=== PATIENT | male | born 1945 | race Caucasian/White ===

== ENCOUNTER 2020-11-18 04:00 | Emergency (ER) | payer OTHER ==
[2020-11-18] MEDS ORDERED: Bacitracin 1 PK ONE (05:18)
== END 2020-11-18 05:15 | disposition home or self-care (01) ==
LOC: BURERS 04:00
DX: S00.01XA Abrasion of scalp, initial encounter (principal); K21.9 Gastro-esophageal reflux disease without esophagitis; E78.5 Hyperlipidemia, unspecified; I10 Essential (primary) hypertension; Z79.899 Other long term (current) drug therapy; W19.XXXA Unspecified fall, initial encounter
CPT/HCPCS: 70450

== ENCOUNTER 2021-04-16 10:35 | Outpatient (CLI) | payer MEDICARE, OTHER | END 2021-04-16 10:36 | disposition home or self-care (01) | LOC: BURRAD 10:35 | PROVIDERS: ATTEND Family Medicine | DX: S89.91XA Unspecified injury of right lower leg, initial encounter (principal); R14.0 Abdominal distension (gaseous); M25.461 Effusion, right knee; M79.89 Other specified soft tissue disorders ==

== ENCOUNTER 2021-05-19 09:08 | Outpatient (CLI) | payer MEDICARE | END 2021-05-19 09:09 | disposition home or self-care (01) | LOC: BURRAD 09:08 | PROVIDERS: ATTEND Registered Nurse Community Health | DX: M25.551 Pain in right hip (principal); Z96.641 Presence of right artificial hip joint ==

== ENCOUNTER 2021-05-31 15:13 | Outpatient (CLI) | payer MEDICARE | END 2021-05-31 15:14 | disposition home or self-care (01) | LOC: BURMANOR 15:13 | PROVIDERS: ATTEND Family Medicine | DX: J02.9 Acute pharyngitis, unspecified (principal) | CPT/HCPCS: 87081; 87430 ==

== ENCOUNTER 2021-06-21 16:02 | Outpatient (CLI) | payer MEDICARE | END 2021-06-21 16:03 | disposition home or self-care (01) | LOC: BURRAD 16:02 | PROVIDERS: ATTEND Family Medicine | DX: M25.511 Pain in right shoulder (principal) ==

== ENCOUNTER 2021-08-19 16:47 | Outpatient (CLI) | payer MEDICARE, OTHER | END 2021-08-19 16:48 | disposition home or self-care (01) | LOC: BURRAD 16:47 | PROVIDERS: ATTEND Nurse Practitioner Family | DX: S99.912A Unspecified injury of left ankle, initial encounter (principal); S99.922A Unspecified injury of left foot, initial encounter ==

== ENCOUNTER 2021-12-13 14:11 | Outpatient (CLI) | payer MEDICARE ==
[2021-12-13 15:01] LABS: Anion Gap 21 mmol/L (10-20); BUN (Urea Nitrogen) 50 mg/dL (8.4-25.7); Calc. Creatinine Clearance 0 mL/min (70-130); Calcium 9.3 mg/dL (7.8-10.44); Carbon Dioxide 25 mmol/L (23-31); Chloride 99 mmol/L (98-107); Estimated GFR 38; Glucose 132 mg/dL (83-110); Magnesium 1.9 mg/dL (1.6-2.6); Potassium 5.4 mmol/L (3.5-5.1); Sodium 140 mmol/L (136-145)
== END 2021-12-13 14:12 | disposition home or self-care (01) ==
LOC: BURLAB 14:11
PROVIDERS: ATTEND Nurse Practitioner Family
DX: I50.9 Heart failure, unspecified (principal)
CPT/HCPCS: 80048; 83735